=== PATIENT | male | born 1985 | race Caucasian/White ===

== ENCOUNTER 2021-09-04 15:51 | Outpatient (REF) | payer MEDICAID, SELFPAY ==
[2021-09-04 19:29] LABS: Anion Gap 7.7 mmol/L (3-11); BUN 9 mg/dL (7-18); CO2 27.3 mmol/L (21.0-32.0); CREATININE 0.8 mg/dL (0.70-1.30); Calcium 9.3 mg/dL (8.5-10.1); Calculated LDL 161 mg/dL (<100); Chloride 101 mmol/L (98-107); Cholesterol 282 mg/dL (<200); Glucose 102 mg/dL (74-106); HDL Cholesterol 79 mg/dL (40-60); Potassium 4.5 mmol/L (3.5-5.1); Sodium 136 mmol/L (136-145); Triglyceride 210 mg/dL (<150)
== END 2021-09-04 15:52 | disposition home or self-care (01) ==
LOC: NCHCN 15:51
PROVIDERS: Visit Provider Nurse Practitioner Family
DX: Z13.220 Encounter for screening for lipoid disorders (principal)
CPT/HCPCS: 80048; 80061

== ENCOUNTER 2022-05-29 15:17 | Outpatient (REF) | payer MEDICAID, SELFPAY ==
[2022-05-29 20:32] LABS: ALT 46 U/L (16-63); AST 62 U/L (15-37); Albumin 4.3 g/dL (3.4-5.0); Alkaline Phosphatase 83 U/L (46-116); Anion Gap 5.7 mmol/L (3-11); BUN 10 mg/dL (7-18); Bilirubin, Total 0.4 mg/dL (0.2-1.0); CO2 31.3 mmol/L (21.0-32.0); CREATININE 0.9 mg/dL (0.70-1.30); Calcium 9.5 mg/dL (8.5-10.1); Calculated LDL 184 mg/dL (<100); Chloride 101 mmol/L (98-107); Cholesterol 337 mg/dL (<200); Estimated GFR 111.42 (mL/min/1.73m2); Glucose 98 mg/dL (74-106); HDL Cholesterol 109 mg/dL (40-60); Potassium 4.4 mmol/L (3.5-5.1); Sodium 138 mmol/L (136-145); Total Protein 7.5 g/dL (6.4-8.2); Triglyceride 222 mg/dL (<150)
== END 2022-05-29 15:18 | disposition home or self-care (01) ==
LOC: NCHCN 15:17
PROVIDERS: Visit Provider Nurse Practitioner Family
DX: E78.5 Hyperlipidemia, unspecified (principal)
CPT/HCPCS: 80053; 80061

== ENCOUNTER 2024-10-26 14:19 | Outpatient (REF) | payer MEDICAID, SELFPAY ==
[2024-10-26 19:30] LABS: HCT 40.7 % (40.0-50.0); HGB 13.2 g/dL (13.5-17.5); MCH 29.1 pg (27.0-33.0); MCHC 32.4 % (32.0-36.0); MCV 90 fL (80-95); MPV 10.2 fL (8.0-11.0); Platelet Count 293 10^3/uL (130-400); RBC 4.53 10^6/uL (4.36-5.78); RDW 13.9 % (11.8-14.1); RDW-SD 45.6 fL; WBC 8.57 10^3/uL (4.4-10.8)
[2024-10-26 19:42] LABS: Uric Acid 8.2 mg/dL (3.5-7.2)
== END 2024-10-26 14:20 | disposition home or self-care (01) ==
LOC: NCHCN 14:19
PROVIDERS: PCP Nurse Practitioner Family; Visit Provider Nurse Practitioner Family
DX: M11.80 Other specified crystal arthropathies, unspecified site (principal)
CPT/HCPCS: 85027; 84550

== ENCOUNTER 2025-04-28 18:38 | Outpatient (REF) | payer MEDICAID, SELFPAY ==
[2025-04-28 19:34] LABS: HCT 41.8 % (40.0-50.0); HGB 13.6 g/dL (13.5-17.5); MCH 30.0 pg (27.0-33.0); MCHC 32.5 % (32.0-36.0); MCV 92 fL (80-95); MPV 10.7 fL (8.0-11.0); Platelet Count 254 10^3/uL (130-400); RBC 4.54 10^6/uL (4.36-5.78); RDW 13.9 % (11.8-14.1); RDW-SD 47.4 fL; WBC 6.54 10^3/uL (4.4-10.8)
[2025-04-28 19:51] LABS: Anion Gap 7.0 mmol/L (3-11); BUN 9 mg/dL (7-18); CO2 30.0 mmol/L (21.0-32.0); Calcium 9.3 mg/dL (8.5-10.1); Calculated LDL 164 mg/dL (<100); Chloride 103 mmol/L (98-107); Cholesterol 280 mg/dL (<200); Estimated GFR 113.32 (mL/min/1.73m2); Glucose 116 mg/dL (74-106); HDL Cholesterol 97 mg/dL (>or=40); Potassium 4.4 mmol/L (3.5-5.1); Sodium 140 mmol/L (136-145); Triglyceride 98 mg/dL (<150)
[2025-04-28 20:14] LABS: Uric Acid 6.5 mg/dL (3.5-7.2)
== END 2025-04-28 18:39 | disposition home or self-care (01) ==
LOC: NCHCN 18:38
PROVIDERS: PCP Nurse Practitioner Family; Visit Provider Nurse Practitioner Family
DX: M10.9 Gout, unspecified (principal); Z13.6 Encounter for screening for cardiovascular disorders
CPT/HCPCS: 80048; 80061; 85027; 84550